=== PATIENT | male | born 1940 | race Caucasian/White ===

== ENCOUNTER 2017-02-14 16:52 | Emergency (ER) | payer OTHER ==
[2017-02-14 16:58] VITALS: BP 145/67; TEMP 98.4; BMI 28.3
[2017-02-14] MEDS ORDERED: LIDOCAINE 1 % AMP 5 ML (SUTURES) SUBCUT STA (17:12)
[2017-02-14] MEDS ORDERED: TETANUS DIPHTHERIA TOXOIDS IM ONE (17:34)
--- NOTE | 2017-02-14 17:36 | ED.PDOC ---
General ED Provider: Dr. NORIS MENDOZA Chief Complaint: Finger Laceration Stated Complaint: finger laceration Time Seen by Physician: 17:00 (sharp metal contact ) Mode of Arrival: Walk-In Information Source: Patient, Family Exam Limitations: No limitations Primary Care Provider: ANNIE TRAVIS Nursing and Triage Documentation Reviewed and Agree: Yes (seen pa student) Skin Complaint Exam - Laceration/Upper Ext. Complaint/Exam Location of Injury: Right (hand index and middle finger ) Initial Severity: Mild Current Severity: Mild Aggravating: None Alleviating: None (see photos befora and after) Associated Signs and Symptoms: Denies: Fever, Chills, Erythema, Numbness, Tingling Differential Diagnoses: Laceration Review of Systems - Review Of Systems Constitutional: Reports: No symptoms Eyes: Reports: No symptoms Ears, Nose, Mouth, Throat: Reports: No symptoms Respiratory: Reports: No symptoms Cardiac: Reports: No symptoms GI: Reports: No symptoms : Reports: No symptoms Musculoskeletal: Reports: No symptoms Skin: Reports: Other (laceration finger right hand ) Neurological: Reports: No symptoms Endocrine: Reports: No symptoms Hematologic/Lymphatic: Reports: No symptoms All Other Systems: Reviewed and Negative Past Medical History - Past Medical History Endocrine: Reports: Dyslipidemia Cardiovascular: Reports: None Respiratory: Reports: None Hematological: Reports: None Gastrointestinal: Reports: None Genitourinary: Reports: None Neuro/Psych: Reports: None Musculoskeletal: Reports: None Cancer: Reports: None - Surgical History General Surgical History: Reports: Cholecystectomy, Orthopedic (LEFT KNEE REPLACED), Other ( HYSTERECTOMY, BLADDER REPAIR) - Family History Family History: Reports: None - Social History Smoking Status: Never smoker Hx Substance Use: No Alcohol Screening: Occasionally - Immunizations Tetanus Shot up to Date: No Physical Exam - Physical Exam Appearance: Well-appearing, No pain distress, Well-nourished Eyes: VIJAY, EOMI, Conjunctiva clear ENT: Ears normal, Nose normal, Oropharynx normal Respiratory: Airway patent, Breath sounds clear, Breath sounds equal, Respirations nonlabored Cardiovascular: RRR, Pulses normal, No rub, No murmur GI/: Soft, Nontender, No masses, Bowel sounds normal, No Organomegaly Musculoskeletal: Normal strength, ROM intact, No edema, No calf tenderness Skin: Warm, Dry (2 lacerations see photos right hand), Normal color Neurological: Sensation intact, Motor intact, Reflexes intact, Cranial nerves intact, Alert, Oriented Psychiatric: Affect appropriate, Mood appropriate Procedures - Laceration/Wound Repair No standard instances Wound Description: Linear (2 lac see photos righ index and ) Wound Length (cm): 1cm middle finger 4mm right idex see photos Wound Width: 2mm Wound Depth: 2mm Wound Explored: Clean Anesthesia: Lidocaine (plain 1 ml ) Undermining: Minimal Wound Repaired With: Sutures Suture Size and Type: 3 prolene, see photos Number of Sutures: 3 Layer Closure?: No Critical Care Note - Critical Care Note Total Time (mins): 0 Course - Course Orders, Labs, Meds: Orders Category Date Time Status Lidocaine HCl/Pf [Lidocaine 1 % Amp 5 ml (Sutures)] MEDS 02/14/17 17:12 Discontinued 5 ml SUBCUT ONCE STA Medications Discontinued Medications Generic Name Dose Route Start Last Admin Trade Name Freq PRN Reason Stop Dose Admin Lidocaine HCl 5 ml 02/14/17 17:12 Lidocaine 1 % Amp 5 Ml (Sutures) SUBCUT 02/14/17 17:13 ONCE STA Vital Signs: Temp Pulse Resp BP Pulse Ox 02/14/17 16:53 98.4 F 62 20 145/67 H 97 Departure - Departure Time of Disposition: 17:36 Disposition: HOME SELF-CARE Discharge Problem: Laceration of finger Instructions: Laceration (ED), Care For Your Stitches (ED), Finger Laceration ( ED) Condition: Good Pt referred to PMD for follow-up: No Additional Instructions: Please call your Family Physician as soon as possible to schedule a follow-up appointment. Allergies/Adverse Reactions: Allergies meperidine HCl [From Demerol] Adverse Reaction (Verified 04/07/15 22:06) Home Medications: Ambulatory Orders Lovastatin 40 mg PO DAILY 04/07/15 Diphenhydramine HCl [Benadryl] 75 mg PO BEDTIME 02/20/16 Magnesium 250 mg PO DAILY 02/20/16 Potassium 1 PO DAILY 02/20/16
== END 2017-02-14 18:06 | disposition home or self-care (01) ==
LOC: ED 16:52
DX: S61.212A Laceration without foreign body of right middle finger without damage to nail, initial encounter (principal); S61.210A Laceration without foreign body of right index finger without damage to nail, initial encounter; W26.8XXA Contact with other sharp object(s), not elsewhere classified, initial encounter
CPT/HCPCS: 90471; 96372; 99283